=== PATIENT | male | born 1960 | race Caucasian/White ===

== ENCOUNTER 2017-01-23 15:17 | Emergency (ER) | payer BC, OTHER ==
[2017-01-23 15:26] VITALS: BP 125/70; PULSE 102; TEMP 99; BMI 31.6
--- NOTE | 2017-01-23 16:08 | PDOC ---
History of Present Illness - General Chief Complaint: Abscess Boil Stated Complaint: ABSCESS/ GENITALIA Time Seen by Provider: 01/23/17 15:35 History Source: Patient Exam Limitations: No Limitations - History of Present Illness Initial Comments: 01/23/17 15:59 56 yr male with c/o "lump" on testicle to right side noticed 5 days ago. no drainage or urinary burning. Pt states a few years ago he was told he was "at risk for testicular cancer". Pt has HTN, hypothyroid. 01/23/17 19:30 Severity: Yes: mild Location: reports: genitalia (right testicle ) Past History - Past Medical History Allergies/Adverse Reactions: Allergies Allergy/AdvReac Type Severity Reaction Status Date / Time ibuprofen [From Advil] Allergy Verified 01/23/17 15:26 Home Medications: Ambulatory Orders Levothyroxine [Synthroid -] 100 mcg PO DAILY 04/01/14 Amlodipine Besylate [Norvasc -] 5 mg PO DAILY 11/02/15 Asthma: Yes HTN: Yes - Psycho/Social/Smoking Cessation Hx Anxiety: No Suicidal Ideation: No Smoking History: Never smoked Have you smoked in the past 12 months: No Hx Alcohol Use: Yes (SOCIAL) Drug/Substance Use Hx: No Substance Use Type: None Review of Systems - Review of Systems Able to Perform ROS?: Yes Is the patient limited Montenegrin proficient: No Constitutional: No: Symptoms Reported HEENTM: No: Symptoms Reported Respiratory: No: Symptoms reported Cardiac (ROS): No: Symptoms Reported ABD/GI: No: Symptoms Reported : No: Symptoms Reported Musculoskeletal: No: Symptoms Reported Integumentary: Yes: Symptoms Reported *Physical Exam - Vital Signs Last Vital Signs Temp Pulse Resp BP Pulse Ox 99.0 F 102 H 20 125/70 97 01/23/17 15:23 01/23/17 15:23 01/23/17 15:23 01/23/17 15:23 01/23/17 15:23 - Physical Exam Comments: 01/23/17 16:08 General Appearance: Yes: Nourished, Appropriately Dressed HEENT: positive: EOMI, MAGALIE Neck: positive: Supple Respiratory/Chest: positive: Lungs Clear, Normal Breath Sounds Cardiovascular: positive: Regular Rhythm, Regular Rate Gastrointestinal/Abdominal: positive: Normal Bowel Sounds, Soft Male Genitalia: positive: normal genitalia, other (right testicle without swelling, no epidymitis tenderness, no discharge , pt has 1mm open area that is red and not ulcerated or abscess like in appearnace, testicles have multiple nevi and small blood vessels , [place] testicular lump or tenderness on palpation). negative: discharge, testicular tenderness, testicular mass, epididymus tender, inguinal hernia, hernia, CVAT, hematuria Lymphatic: negative: Adenopathy Musculoskeletal: positive: Normal Inspection Extremity: positive: Normal Capillary Refill, Normal Inspection, Normal Range of Motion. negative: Tender Integumentary: positive: Normal Color, Dry, Warm Neurologic: positive: Fully Oriented, Alert, Normal Mood/Affect, Normal Response , Motor Strength 5/ ED Treatment Course - RADIOLOGY Radiology Studies Ordered: Category Date Time Status SCROTUM AND CONTENTS US [US] Stat Ultrasound 01/23/17 15:58 Ordered Radiograph Interpretation: 01/23/17 18:58 Medical Decision Making - Medical Decision Making 01/23/17 16:18 cc: right testicle with lump for 5 days no drainage no discharge no history of STD or recent exposure will get US swab for herpes however the area is not typical of herpetic lesion 01/23/17 19:29 US is negative per imaging environmental engineering manager. result given to pt to bring to his PMD for follow up this week I have told pt we will notify him if the viral swab is positive. pt agrees with plan of care all questions asked and answered. *DC/Admit/Observation/Transfer Diagnosis at time of Disposition: Testicle pain - Discharge Dispostion Disposition: HOME Condition at time of disposition: Good - Referrals Referrals: STAFF,NOT ON [Primary Care Provider] - Robinson Downey MD [Staff Physician] - - Patient Instructions Additional Instructions: please follow with your medical doctor or the urologist this week for follow up the Ultrasound done today is normal
== END 2017-01-23 19:02 | disposition home or self-care (01) ==
LOC: JERFT 15:17
DX: N50.811 Right testicular pain (principal); I10 Essential (primary) hypertension; E03.9 Hypothyroidism, unspecified
CPT/HCPCS: 76870-TC; 87255; 99281-25

== ENCOUNTER 2017-08-05 14:09 | Emergency (ER) | payer BC, OTHER ==
--- NOTE | 2017-08-05 14:14 | PDOC ---
Rapid Medical Evaluation Time Seen by Provider: 08/05/17 14:12 Medical Evaluation: Allergies Allergy/AdvReac Type Severity Reaction Status Date / Time ibuprofen [From Advil] Allergy Verified 01/23/17 15:26 08/05/17 14:12 The patient presents with a chief complaint of: abdominal pain for 2 weeks that is intermittent without n, v, diarrhea I have performed a brief in-person evaluation of this patient; Pertinent physical exam findings: ambulatory, in no respiratory distress I have ordered the following: cbc, cmp, lipase The patient will proceed to the ED for further evaluation.
[2017-08-05 14:15] VITALS: TEMP 98.7; BMI 33.5
[2017-08-05 14:31] LABS: BASO % 1.1 % (0-2.0); EOS % 3.2 % (0-4.5); HEMATOCRIT 46.3 % (35.4-49); HEMOGLOBIN 15.9 GM/dL (11.7-16.9); LYMPH % 21.5 % (8-40); MCH 29.5 pg (25.7-33.7); MCHC 34.3 g/dl (32.0-35.9); MEAN PLT VOLUME 8.7 fl (7.5-11.1); MONO % 8.4 % (3.8-10.2); NEUT % 65.8 % (42.8-82.8); PLATELET COUNT 222 K/MM3 (134-434); RBC 5.38 M/mm3 (4.00-5.60); RDW 13.3 % (11.9-15.9); WHITE BLOOD COUNT 8.7 K/mm3 (4.0-10.0)
[2017-08-05 15:12] LABS: ALBUMIN 4.1 g/dl (3.4-5.0); ANION GAP 10 (8-16); BLOOD UREA NITROGEN 10 mg/dL (7-18); CALCIUM 9.3 mg/dL (8.5-10.1); CHLORIDE 104 mmol/L (98-107); CO2 26 mmol/L (21-32); CREATININE 0.9 mg/dL (0.7-1.3); GLUCOSE,RANDOM 98 mg/dL (74-106); LIPASE 153 U/L (73-393); POTASSIUM 4.1 mmol/L (3.5-5.1); SGOT/AST 18 U/L (15-37); SGPT/ALT 32 U/L (12-78); SODIUM 140 mmol/L (136-145)
[2017-08-05 15:13] LABS: ALK PHOS 80 U/L (45-117); BILIRUBIN,TOTAL 0.4 mg/dL (0.2-1.0); TOT PROT 7.9 g/dl (6.4-8.2)
[2017-08-05] MEDS ORDERED: ONDANSETRON 4 MG/2 ML VIAL IVPUSH ONE (15:22)
[2017-08-05] MEDS ORDERED: SODIUM CHLORIDE 1,000 ML IV STA (15:22)
[2017-08-05] MEDS ORDERED: PANTOPRAZOLE SODIUM 40 MG in SODIUM CHLORIDE 100 ML IVPB ONE (15:22)
[2017-08-05] MEDS ORDERED: ONDANSETRON 4 MG/2 ML VIAL ONE (15:43)
[2017-08-05] MEDS ORDERED: PANTOPRAZOLE SODIUM 40 MG VIAL ONE (15:43)
[2017-08-05 15:55] LABS: AMYLASE 45 U/L (25-115)
[2017-08-05] MEDS ORDERED: KETOROLAC TROMETHAMINE 30 MG/1 ML VIAL IVPUSH ONE (16:22)
[2017-08-05] MEDS ORDERED: KETOROLAC TROMETHAMINE 30 MG/1 ML VIAL ONE (16:28)
--- NOTE | 2017-08-05 17:03 | PDOC ---
History of Present Illness - General Chief Complaint: Pain, Acute Stated Complaint: SERNA ABD PAIN Time Seen by Provider: 08/05/17 14:12 History Source: Patient Exam Limitations: No Limitations - History of Present Illness Travel History: No Initial Comments: 08/05/17 14:58 56-year-old male presents to the ED with complaints of intermittent nausea and vomiting associated with constipation for the past few days. Patient states pain is a burning sensation to his epigastric area with intermittent radiation to his right upper quadrant. Patient denies history of gallstones, gastritis, GERD, change in diet, change in weight, fever, chills but does state has been constipated for the past 2 days with mild abdominal distention. Patient denies drug or alcohol use. Timing/Duration: reports: getting worse, intermittent Quality: reports: moderate, burning Abdominal Pain Onset Location: reports: epigastric Pain Radiation: reports: no radiation Aggravating Factors: improves with: Eating Alleviating Factors: improves with: None Past History - Travel Traveled outside of the country in the last 30 days: No - Past Medical History Allergies/Adverse Reactions: Allergies Allergy/AdvReac Type Severity Reaction Status Date / Time ibuprofen [From Advil] Allergy Severe Swelling Verified 08/05/17 14:12 Home Medications: Ambulatory Orders Levothyroxine [Synthroid -] 100 mcg PO DAILY 04/01/14 Amlodipine Besylate [Norvasc -] 5 mg PO DAILY 11/02/15 Asthma: Yes COPD: No HTN: Yes - Suicide/Smoking/Psychosocial Hx Smoking History: Never smoked Have you smoked in the past 12 months: No Hx Alcohol Use: Yes (SOCIAL) Drug/Substance Use Hx: No Substance Use Type: None Patient Lives Alone: No Review of Systems - Review of Systems Able to Perform ROS?: Yes Constitutional: No: Symptoms Reported HEENTM: No: Symptoms Reported Respiratory: No: Symptoms reported Cardiac (ROS): No: Symptoms Reported ABD/GI: Yes: Constipated, Nausea, Indigestion, Abdominal cramping : No: Symptoms Reported Musculoskeletal: No: Symptoms Reported Integumentary: No: Symptoms Reported *Physical Exam - Vital Signs Last Vital Signs Temp Pulse Resp BP Pulse Ox 98.7 F 100 H 18 124/86 96 08/05/17 14:12 08/05/17 14:12 08/05/17 14:12 08/05/17 14:12 08/05/17 14:12 - Physical Exam General Appearance: Yes: Nourished, Appropriately Dressed. No: Apparent Distress Respiratory/Chest: positive: Lungs Clear, Normal Breath Sounds. negative: Respiratory Distress, Accessory Muscle Use Cardiovascular: positive: Regular Rhythm, Regular Rate (88 apical). negative: Murmur Gastrointestinal/Abdominal: positive: Normal Bowel Sounds, Soft, Distended (mild ), Tenderness (mild epigastric. no ruq or rlq tenderness) Musculoskeletal: negative: CVA Tenderness Extremity: positive: Normal Capillary Refill Integumentary: positive: Normal Color, Warm, Moist Neurologic: positive: Motor Strength /5 ED Treatment Course - LABORATORY CBC & Chemistry Diagram: 08/05/17 14:23 08/05/17 14:23 - ADDITIONAL ORDERS Additional order review: Laboratory Results 08/05/17 14:23 Sodium 140 Potassium 4.1 Chloride 104 Carbon Dioxide 26 Anion Gap 10 BUN 10 D Creatinine 0.9 Creat Clearance w eGFR > 60 Random Glucose 98 Calcium 9.3 Total Bilirubin 0.4 AST 18 ALT 32 Alkaline Phosphatase 80 Total Protein 7.9 Albumin 4.1 Total Amylase 45 Lipase 153 08/05/17 14:23 RBC 5.38 MCV 86.0 MCHC 34.3 RDW 13.3 MPV 8.7 Neutrophils % 65.8 Lymphocytes % 21.5 Monocytes % 8.4 Eosinophils % 3.2 Basophils % 1.1 - RADIOLOGY Radiology Studies Ordered: Category Date Time Status ABDOMEN FLAT & UPRIGHT [RAD] Stat Radiology 08/05/17 15:22 Taken - Medications Given in the ED: ED Medications Discontinued Medications Generic Name Dose Route Start Last Admin Trade Name Lola PRN Reason Stop Dose Admin Pantoprazole Sodium 40 mg/ 100 mls @ 200 mls/hr 08/05/17 15:22 08/05/17 15:39 Sodium Chloride IVPB 08/05/17 15:51 200 mls/hr ONCE ONE Administration Sodium Chloride 1,000 mls @ 1,000 mls/hr 08/05/17 15:22 08/05/17 15:39 Normal Saline - IV 08/05/17 16:21 1,000 mls/hr ASDIR STA Administration Ketorolac Tromethamine 30 mg 08/05/17 16:22 08/05/17 16:48 Toradol Injection - IVPUSH 08/05/17 16:23 30 mg ONCE ONE Administration Ondansetron HCl 4 mg 08/05/17 15:22 08/05/17 15:39 Zofran Injection IVPUSH 08/05/17 15:23 4 mg ONCE ONE Administration Medical Decision Making - Medical Decision Making 08/05/17 13:01 Patient with episodic nausea worsened with meals for the past few days. Patient has no history of GI disorders but does complain of constipation presently for the past 2 days. Patient on exam had tenderness in the epigastric area and mild distention with bowel sounds present 4. Differential diagnosis: GERD, gastritis, constipation, cholecystitis, less likely pancreatitis, PUD or dyspepsia 08/05/17 17:03 Laboratory Tests 08/05/17 08/05/17 14:23 14:23 WBC 8.7 Hgb 15.9 Hct 46.3 Plt Count 222 Sodium 140 Potassium 4.1 Chloride 104 Carbon Dioxide 26 Anion Gap 10 BUN 10 D Creatinine 0.9 Random Glucose 98 Total Bilirubin 0.4 AST 18 ALT 32 Total Protein 7.9 Albumin 4.1 Total Amylase 45 Lipase 153 08/05/17 17:26 Abdominal flat and upright negative for acute findings. Noted diffuse gas pattern with mild fecal retention in the distal sigmoid. Patient states feeling better after receiving the above medication. Patient will be discharged home with Protonix and Zofran along with GI referral. *DC/Admit/Observation/Transfer Diagnosis at time of Disposition: Epigastric abdominal pain, Constipation - Discharge Dispostion Disposition: HOME Condition at time of disposition: Improved - Referrals - Patient Instructions Printed Discharge Instructions: DI for Epigastric Pain, Increased Dietary Fiber May Improve Constipation Conditions With Pelvic Emery Additional Instructions: Please take medication as prescribed and please follow-up with primary care physician . Bring a copy of your blood work with you. Please also discuss having an endoscopy secondary to today's complaints. Remember you can return to the emergency room any given time if your symptoms worsen. Otherwise increase your fiber intake and avoid starchy foods that cause constipation. - Post Discharge Activity
[2017-08-05 18:32] VITALS: BP 134/61; PULSE 90
== END 2017-08-05 18:32 | disposition home or self-care (01) ==
LOC: JER 14:09
PROC: 3E0333Z Introduction of Anti-inflammatory into Peripheral Vein, Percutaneous Approach (ICD-10-PCS; principal; 2017-08-05)
PROC: 3E033GC Introduction of Other Therapeutic Substance into Peripheral Vein, Percutaneous Approach (ICD-10-PCS; 2017-08-05)
PROC: 3E0337Z Introduction of Electrolytic and Water Balance Substance into Peripheral Vein, Percutaneous Approach (ICD-10-PCS; 2017-08-05)
DX: K59.00 Constipation, unspecified (principal); R10.13 Epigastric pain
CPT/HCPCS: 36415; 74019-TC-FY; 80053; 82150; 83690; 85025; 99283-25

== ENCOUNTER 2018-02-21 14:52 | Emergency (ER) | payer BC, OTHER ==
[2018-02-21 15:12] VITALS: BP 129/85; PULSE 93; TEMP 98.1; BMI 33.2
--- NOTE | 2018-02-21 15:13 | PDOC ---
Rapid Medical Evaluation Chief Complaint: Bleeding from Anus Time Seen by Provider: 02/21/18 15:12 Medical Evaluation: Allergies Allergy/AdvReac Type Severity Reaction Status Date / Time ibuprofen [From Advil] Allergy Severe Swelling Verified 08/05/17 14:12 Vital Signs Temp Pulse Resp BP Pulse Ox 98.1 F 93 H 18 129/85 97 02/21/18 15:10 02/21/18 15:10 02/21/18 15:10 02/21/18 15:10 02/21/18 15:10 02/21/18 15:16 The patient presents with a chief complaint of: rectal bleeding yest I have performed a brief in-person evaluation of this patient. Pertinent physical exam findings: vss, stable I have ordered the following: cbc, cmp The patient will proceed to the ED for further evaluation.
[2018-02-21 16:18] LABS: HEMATOCRIT 45.8 % (35.4-49); HEMOGLOBIN 15.5 GM/dL (11.7-16.9); MCH 29.2 pg (25.7-33.7); MCHC 33.8 g/dl (32.0-35.9); MEAN CELL VOLUME 86.4 fl (80-96); MEAN PLT VOLUME 9.2 fl (7.5-11.1); PLATELET COUNT 229 K/MM3 (134-434); RDW 12.9 % (11.9-15.9)
[2018-02-21 16:51] LABS: ALBUMIN 4.1 g/dl (3.4-5.0); ALK PHOS 88 U/L (45-117); ANION GAP 8 MMOL/L (8-16); BILIRUBIN,TOTAL 0.4 mg/dL (0.2-1); BLOOD UREA NITROGEN 13 mg/dL (7-18); CALCIUM 9.3 mg/dL (8.5-10.1); CHLORIDE 105 mmol/L (98-107); CO2 28 mmol/L (21-32); CREATININE 0.9 mg/dL (0.55-1.3); GLUCOSE,RANDOM 97 mg/dL (74-106); POTASSIUM 4.4 mmol/L (3.5-5.1); SGOT/AST 21 U/L (15-37); SGPT/ALT 34 U/L (13-61); SODIUM 141 mmol/L (136-145); TOT PROT 7.7 g/dl (6.4-8.2)
--- NOTE | 2018-02-21 17:00 | PDOC ---
History of Present Illness - General Chief Complaint: Bleeding from Anus Stated Complaint: BLOOD IN STOOL Time Seen by Provider: 02/21/18 15:12 History Source: Patient Exam Limitations: No Limitations - History of Present Illness Travel History: No Initial Comments: 02/21/18 17:00 57y M hx of hypothrydoisim, htn presents with rectal bleeding. The patient notes that he had an episode of bleeding last night as he was having a BM. The BM was brown, and had blood surrounding it, and he noticed some blood in the toilet and on the toilet paper. Pt denies any further episodes. he notes he has a hx of hemorroids dx through a colonscopy but has never had any issues including pain or bleeding. Patient denies any chest pain, sob, palpitations, lightheadeness pt on baby asa. family hx of colon ca, last colonoscopy 3 years ago Past History - Past Medical History Allergies/Adverse Reactions: Allergies Allergy/AdvReac Type Severity Reaction Status Date / Time ibuprofen [From Advil] Allergy Severe Swelling Verified 02/21/18 17:08 Home Medications: Ambulatory Orders Levothyroxine [Synthroid -] 100 mcg PO DAILY 04/01/14 Amlodipine Besylate [Norvasc -] 5 mg PO DAILY 11/02/15 Pantoprazole Sodium [Protonix] 40 mg PO DAILY #30 tablet. 08/05/17 Asthma: Yes COPD: No HTN: Yes Thyroid Disease: Yes - Suicide/Smoking/Psychosocial Hx Smoking History: Never smoked Have you smoked in the past 12 months: No Hx Alcohol Use: Yes (SOCIAL) Drug/Substance Use Hx: No Substance Use Type: None Review of Systems - Review of Systems Able to Perform ROS?: Yes Comments:: 02/21/18 17:05 Constitutional - no reported Fever, Chills, HEENT: no reported vision changes, sore throat Respiratory: no reported cough, sob, hemoptysis Cardiac: no reported chest pain, palpitations, light headedness, leg swelling Abd/GI: +rectal bleeding no reported abd pain, nausea, vomiting, melena, diarrhea : no reported dysuria, frequency, discharge Musculskelatal - no reported back pain, joint swelling skin - no reported bruising, erythema, rash neurological: no reported headache, numbness, focal weakness, tingling, ataxia, hematologic: no reported easy bruising, easy bleeding *Physical Exam - Vital Signs Last Vital Signs Temp Pulse Resp BP Pulse Ox 98.1 F 93 H 18 129/85 97 02/21/18 15:10 02/21/18 15:10 02/21/18 15:10 02/21/18 15:10 02/21/18 15:10 - Physical Exam Comments: 02/21/18 17:07 GENERAL: The patient is awake, alert, and fully oriented, Nontoxic - in no acute distress. HEAD: Normocephalic, atraumatic. EYES: extraocular movements intact, sclera anicteric, conjunctiva clear. ENT: Normal voice, Moist mucous membranes. NECK: Normal range of motion, supple LUNGS: Breath sounds equal, clear to auscultation bilaterally. No wheezes, no rhonchi, no rales. HEART: Regular rate and rhythm, normal S1 and S2 without murmur, rub or gallop. ABDOMEN: Soft, nontender, normoactive bowel sounds. No guarding, no rebound. No CVA tenderness RECTAL: nonthrombosed external hemrroid, no active bleeding noted, non melantoic brownish stool with red tinge, guauic pending EXTREMITIES: Normal range of motion, no edema. No clubbing or cyanosis. No cords, erythema, or tenderness. NEUROLOGICAL: No facial assymetry, Normal speech, PSYCH: Normal mood, normal affect. SKIN: Warm, Dry, normal turgor, ED Treatment Course - LABORATORY CBC & Chemistry Diagram: 02/21/18 15:55 02/21/18 15:55 - ADDITIONAL ORDERS Additional order review: Laboratory Results 02/21/18 15:55 Sodium 141 Potassium 4.4 Chloride 105 Carbon Dioxide 28 Anion Gap 8 BUN 13 Creatinine 0.9 Creat Clearance w eGFR > 60 Random Glucose 97 Calcium 9.3 Total Bilirubin 0.4 AST 21 ALT 34 Alkaline Phosphatase 88 Total Protein 7.7 Albumin 4.1 02/21/18 15:55 RBC 5.30 MCV 86.4 MCHC 33.8 RDW 12.9 MPV 9.2 Medical Decision Making - Medical Decision Making 02/21/18 17:09 suspect external hemorroid will ck albs to r/o anemia no signs of UGIB or high volume lower GIB pt with history of constipation and straining, and hemorroidal bleeding consistent with his bleeding 02/21/18 17:10 blood work unremarkble will have pt use metamucil to decrease constipation will have pt fu with PMD and GI return precautions were discussed I discussed the physical exam findings, ancillary test results and final diagnoses with the patient. I answered all of the patient's questions. The patient was satisfied with the care received and felt comfortable with the discharge plan and treatment plan. The patient will call their primary care physician within 24 hours to arrange follow-up and will return to the Emergency Department with any new, persistent or worsening symptoms. *DC/Admit/Observation/Transfer Diagnosis at time of Disposition: Rectal bleed, External hemorrhoid - Discharge Dispostion Disposition: HOME Condition at time of disposition: Improved Decision to Admit order: No - Referrals Referrals: ON STAFF,NOT [Primary Care Provider] - - Patient Instructions Printed Discharge Instructions: DI for Rectal Bleeding, DI for Hemorrhoids Additional Instructions: Return to the emergency department immediately with ANY new, persistent or worsening symptoms including increased bleeding, lightheadedness, fevers or chills, palpitations, or any other concerns. Increase the fiber intake to minimize constipation to prevent hemorroids. You can use metamucil You MUST call and follow up with your doctorand GI doctor in 3-4 days for further evaluation of your symptoms. Results were discussed with you. Please make sure your doctor reviews the results of your emergency evaluation. Print Language: TELUGU - Post Discharge Activity
== END 2018-02-21 18:20 | disposition home or self-care (01) ==
LOC: JER 14:52
DX: K64.4 Residual hemorrhoidal skin tags (principal); K59.00 Constipation, unspecified; I10 Essential (primary) hypertension; E03.9 Hypothyroidism, unspecified; J45.909 Unspecified asthma, uncomplicated
CPT/HCPCS: 36415; 80053; 82272; 85027; 99282-25

== ENCOUNTER 2018-11-14 18:50 | Emergency (ER) | payer BC, OTHER | END 2018-11-14 23:09 | disposition home or self-care (01) | LOC: JER 18:50 ==

== ENCOUNTER 2019-08-14 09:28 | Emergency (ER) | payer BC, OTHER ==
[2019-08-14 09:49] VITALS: BP 127/70; PULSE 97; TEMP 98; BMI 34.2
[2019-08-14] MEDS ORDERED: ACETAMINOPHEN 500 MG TABLET (FP) PO ONE (10:06)
--- NOTE | 2019-08-14 10:12 | PDOC ---
History of Present Illness - General Chief Complaint: Pain Stated Complaint: R/LEG PAIN Time Seen by Provider: 08/14/19 10:00 History Source: Patient - History of Present Illness Occurred: reports: other Pain Location: reports: back, lower extremity Past History - Past Medical History Allergies/Adverse Reactions: Allergies Allergy/AdvReac Type Severity Reaction Status Date / Time ibuprofen [From Advil] Allergy Severe Swelling Verified 08/14/19 09:40 Home Medications: Ambulatory Orders Levothyroxine [Synthroid -] 100 mcg PO DAILY 04/01/14 Amlodipine Besylate [Norvasc -] 5 mg PO DAILY 11/02/15 Acetaminophen [Tylenol -] 1,000 mg PO Q6H #30 tablet 08/14/19 Cyclobenzaprine HCl [Flexeril 10 mg] 10 mg PO HS #9 tablet 08/14/19 Asthma: Yes COPD: No HTN: Yes Thyroid Disease: Yes - Psycho Social/Smoking Cessation Hx Smoking History: Unknown if ever smoked Have you smoked in the past 12 months: No Hx Alcohol Use: Yes Drug/Substance Use Hx: No Substance Use Type: None Review of Systems - Review of Systems Constitutional: No: Chills, Fever ABD/GI: No: Nausea, Vomiting, Abdominal cramping : No: Dysuria, Flank Pain, Hematuria Musculoskeletal: Yes: Back Pain. No: Muscle Weakness Neurological: No: Numbness, Tingling, Weakness *Physical Exam - Vital Signs Last Vital Signs Temp Pulse Resp BP Pulse Ox 98 F 97 H 18 127/70 96 08/14/19 09:40 08/14/19 09:40 08/14/19 09:40 08/14/19 09:40 08/14/19 09:40 - Physical Exam General Appearance: Yes: Appropriately Dressed, Mild Distress HEENT: positive: Normal Voice Neck: positive: Supple Respiratory/Chest: negative: Respiratory Distress Gastrointestinal/Abdominal: positive: Soft. negative: Tender, Pulsatile Mass Musculoskeletal: negative: CVA Tenderness, Vertebral Tenderness Extremity: positive: Normal Inspection Integumentary: positive: Dry, Warm Neurologic: positive: Fully Oriented, Alert, Normal Mood/Affect, Motor Strength 5/5, Other (neg SLR, able to bear weight but mild limp) Medical Decision Making - Medical Decision Making 08/14/19 10:08 58-year-old male history of hypertension and thyroid disease, here with R lower back pain radiating to posterior aspect of R thigh and upper R leg. Pain started several days ago. Pain constant and worse with weight bearing and certain movements. No sensory changes or extremity weakness, incontinence or saddle anesthesia. Only took aspirin for pain with no relief. No history of trauma or other obvious inciting factors. Currently retired. Might have had similar condition in the past but not this severe per patient see exam M/l MSK back pain, ? sciatica No red flags on exam Dose of tylenol 1000mg given in ED as allergic to NSAID (edema) Dc w/ pain control and PMD f/u Discharge - Discharge Information Problems reviewed: Yes Clinical Impression/Diagnosis: Low back pain Qualifiers: Chronicity: acute Back pain laterality: right Sciatica presence: unspecified whether sciatica present Qualified Code(s): M54.5 - Low back pain Condition: Good Disposition: HOME - Additional Discharge Information Prescriptions: Cyclobenzaprine HCl [Flexeril 10 mg] 10 mg PO HS #9 tablet Acetaminophen [Tylenol -] 1,000 mg PO Q6H #30 tablet - Follow up/Referral Referrals: Bonnie Chappell [Primary Care Provider] - - Patient Discharge Instructions Patient Printed Discharge Instructions: DI for Low Back Pain Additional Instructions: Take medication for pain as directed and follow-up with your PMD - Post Discharge Activity
[2019-08-14] MEDS ORDERED: ACETAMINOPHEN 500 MG TABLET (FP) ONE (10:28)
== END 2019-08-14 10:32 | disposition home or self-care (01) ==
LOC: JER 09:28 → JERFT 09:28
DX: M54.5 Low back pain (principal); I10 Essential (primary) hypertension; E03.9 Hypothyroidism, unspecified; J45.909 Unspecified asthma, uncomplicated; Z88.6 Allergy status to analgesic agent
CPT/HCPCS: 99283-25